=== PATIENT | female | born 1970 | race Caucasian/White ===

== ENCOUNTER 2016-09-16 11:57 | Emergency (ER) | payer OTHER ==
[2016-09-16 12:02] VITALS: O2SAT 97
--- NOTE | 2016-09-16 12:14 | CPEKG ---
Heart Rate: 71 RR Interval: 845 P-R Interval: 132 QRSD Interval: 78 QT Interval: 384 QTC Interval: 418 P [place]: 20 QRS [place]: 26 T Wave [place]: 13 EKG Severity - NORMAL ECG - EKG Impression: SINUS RHYTHM Electronically Signed By: Honorio Boyce 17-Sep-2016 09:12:01
[2016-09-16 12:40] LABS: % IMMATURE GRANULYOCYTES 0.1 % (0.0-1.1); ABSOLUTE IMMATURE GRANULOCYTES 0.01 10^3/uL (0.00-0.10); ADD DIFF? NO; ADD MORPH? NO; ADD SCAN? NO; ATYPICAL LYMPHOCYTE FLAG 10 (0-99); FRAGMENT RBC FLAG 0 (0-99); HEMATOCRIT 41.6 % (38.0-47.0); HEMOGLOBIN 14.4 g/dL (12.6-16.3); LEFT SHIFT FLG 0 (0-99); LIPEMIA HEMOLYSIS FLAG 90 (0-99); MEAN CELL HEMOGLOBIN 31.6 pg (27.9-34.1); MEAN CELL HEMOGLOBIN CONCENTR. 34.6 g/dL (32.4-36.7); MEAN CELL VOLUME 91.2 fL (81.5-99.8); MEAN PLATELET VOLUME 9.4 fL (8.7-11.7); PLATELET CLUMPS FLAG 10 (0-99); PLATELET COUNT 300 10^3/uL (150-400); RED BLOOD CELL COUNT 4.56 10^6/uL (4.18-5.33); RED CELL DISTRIBUTION WIDTH 12.6 % (11.5-15.2)
--- NOTE | 2016-09-16 12:41 | EDPHY ---
HPI/HX/ROS/PE/MDM Narrative: Chief complaint: Chest pressure, palpitations, nausea HPI: 46-year-old woman presenting complaining of a 2 days of this sensation in her heart is racing, tightness in her left chest, some lightheadedness. Does not have a history of the same. States that she is having intermittent episodes where she feels like her heart is pounding fast but is not actually measuring her heart rate. This is associated with some tightness in her left upper chest. Last time she had this was earlier this morning while she was heading out both ends at spiritism. Denies any shortness of breath. Does have a recent long car ride to [place] a over the holidays and back. No shortness of breath. No pain with deep inspiration. No cough. Has also noted some increased urination without any dysuria. Also has noted that she has had some decrease in her exercise tolerance and that every time she tried attempted a cardio workout she would get significant palpitations. She does have a history of a thyroid nodule which is being followed. She does not have any risk factors for coronary artery disease. She does have a family history of diabetes. Last menstrual. Was September 05 and was normal. ROS: 10 point Review of Systems is negative except as noted in the HPI. Physical exam: Gen: Awake, Alert, No Distress HEENT: Nose: no rhinorrhea Eyes: PERRLA, EOMI Mouth: Moist mucosa Neck: Supple, no JVD Chest: nontender, lungs clear to auscultation Heart: S1, S2 normal, no murmur Abd: Soft, non-tender, no guarding Back: no CVA tenderness, no midline tenderness Ext: no edema, non-tender Skin: no rash Neuro: CN II-XII intact, Sensation grossly intact, Strength 5/5 in bilateral upper and lower extremities ED Course: EC sinus rhythm, normal axis, normal intervals, no ST or T-wave changes. Impression: Normal ECG. Chest x-ray: Negative per Dr. Mclaughlin. Clinical Course: ECG is normal, all for laboratory evaluation including CBC, chemistry, D-dimer, tsh from 2 days ago, urinalysis and urine preg are all normal. There are no acute findings to explain her palpitations. She does some chest tightness several hours ago which has since resolved. She has a normal troponin at this time. She has not have risk factors for coronary artery disease. She has entirely normal studies today. Plan will be to discharge to home with follow with her primary care physician. Id [place] she were to have an event monitor in case she has episodes of palpitations again to capture these. She already has an appointment with a audioprosthologist in 3 weeks for further evaluation. - Data Points Laboratory Results: Laboratory Results 09/16/16 12:17 09/16/16 12:17 09/16/16 09/16/16 13:25 12:17 WBC 8.68 10^3/uL (3.80-9.50) RBC 4.56 10^6/uL (4.18-5.33) Hgb 14.4 g/dL (12.6-16.3) Hct 41.6 % (38.0-47.0) MCV 91.2 fL (81.5-99.8) MCH 31.6 pg (27.9-34.1) MCHC 34.6 g/dL (32.4-36.7) RDW 12.6 % (11.5-15.2) Plt Count 300 10^3/uL (150-400) MPV 9.4 fL (8.7-11.7) Neut % (Auto) 65.0 % (39.3-74.2) Lymph % (Auto) 23.4 % (15.0-45.0) [place] % (Auto) 5.0 % (4.5-13.0) Eos % (Auto) 6.0 % (0.6-7.6) Baso % (Auto) 0.5 % (0.3-1.7) Nucleat RBC Rel Count 0.0 % (0.0-0.2) Absolute Neuts (auto) 5.65 10^3/uL (1.70-6.50) Absolute Lymphs (auto) 2.03 10^3/uL (1.00-3.00) Absolute Monos (auto) 0.43 10^3/uL (0.30-0.80) Absolute Eos (auto) 0.52 H 10^3/uL (0.03-0.40) Absolute Basos (auto) 0.04 10^3/uL (0.02-0.10) Absolute Nucleated RBC 0.00 10^3/uL (0-0.01) Immature Gran % 0.1 % (0.0-1.1) Immature Gran # 0.01 10^3/uL (0.00-0.10) D-Dimer 0.37 ug/mLFEU (0.00-0.50) Sodium 141 mEq/L (134-144) Potassium 4.2 mEq/L (3.5-5.2) Chloride 104 mEq/L (97-110) Carbon Dioxide 24 mEq/l (22-31) Anion Gap 13 mEq/L (8-16) BUN 12 mg/dL (7-23) Creatinine 0.7 mg/dL (0.6-1.0) Estimated GFR > 60 Glucose 97 mg/dL (70-100) Calcium 9.8 mg/dL (8.5-10.4) Troponin I < 0.012 ng/mL (0-0.034) TSH Cancelled Free T4 Cancelled Urine Color PALE YELLOW Urine Appearance CLEAR Urine pH 6.0 (5.0-7.5) Ur Specific [place] 1.006 (1.002-1.030) Urine Protein NEGATIVE (NEGATIVE) Urine Ketones NEGATIVE (NEGATIVE) Urine Blood NEGATIVE (NEGATIVE) Urine Nitrate NEGATIVE (NEGATIVE) Urine Bilirubin NEGATIVE (NEGATIVE) Urine Urobilinogen NEGATIVE EU (0.2-1.0) Ur Leukocyte Esterase NEGATIVE (NEGATIVE) Urine Glucose NEGATIVE (NEGATIVE) Urine Test NEGATIVE General Time Seen by Provider: 09/16/16 12:25 Initial Vital Signs: Initial Vital Signs Heart Rate 76 09/16/16 11:59 Respiratory Rate 18 09/16/16 11:59 Blood Pressure 135/97 H 09/16/16 11:59 O2 Sat (%) 97 09/16/16 11:59 O2 Delivery Mode Room Air Allergies/Adverse Reactions: No Known Allergies Allergy (Unverified 09/16/16 12:02) Home Medications: Medication Instructions Recorded NK [No Known Home Meds] 09/16/16 Departure - Departure Disposition: Home, Routine, Self-Care Clinical Impression: Palpitations Condition: Good Instructions: Palpitations (ED) Additional Instructions: Follow up with her primary care doctor in the next couple of days to arrange for an outpatient monitor technician. Follow up with Cardiology as scheduled in 3 weeks time. Return to the emergency depart for increasing chest pain, palpitations, fevers, chills, fainting, or any other concerns. Referrals: Merlyn Lopez MD [Primary Care Provider] - As per Instructions
--- NOTE | 2016-09-16 12:44 | DX ---
PA and Lateral Chest X-ray 1155 hours History: Chest pain and pressure.. Findings: Heart size and pulmonary vasculature are normal. The lungs are clear without infiltrates or effusions. There is no pneumothorax. The osseous structures are intact. Mild anterior marginal osteo phytes are noted mid thoracic spine. Impression: No active cardiopulmonary disease seen.
[2016-09-16 13:02] LABS: ANION GAP 13 mEq/L (8-16); CALCIUM 9.8 mg/dL (8.5-10.4); CARBON DIOXIDE 24 mEq/l (22-31); CHLORIDE 104 mEq/L (97-110); CREATININE 0.7 mg/dL (0.6-1.0); GLOMERULAR FILTRATION RATE > 60; GLUCOSE 97 mg/dL (70-100); POTASSIUM 4.2 mEq/L (3.5-5.2); SODIUM 141 mEq/L (134-144)
[2016-09-16 13:10] LABS: TROPONIN I < 0.012 ng/mL (0-0.034)
[2016-09-16 14:15] LABS: COLOR PALE YELLOW; LEUKOCYTE ESTERASE,URINE NEGATIVE (NEGATIVE); NITRITE,URINE NEGATIVE (NEGATIVE)
[2016-09-16 14:51] VITALS: BP 137/84; PULSE 73; RESP 12; TEMP 98.4
== END 2016-09-16 14:56 | disposition home or self-care (01) ==
DX: R00.2 Palpitations (principal)

== ENCOUNTER → 2016-09-24 | Outpatient (CLI) | payer OTHER ==
--- NOTE | 2016-09-24 12:04 | US ---
Thyroid Ultrasound History: Follow up right-sided thyroid nodule with previous benign biopsy. Comparison: Thyroid ultrasound of August 17, 2015 and July 08, 2014. Technique: Longitudinal and transverse ultrasound imaging of the thyroid gland. Findings: The right lobe of the thyroid measures 2.4 x 1.8 x 5.4 cm. The solid nodule in the mid rig ht thyroid measures 2.3 x 1.5 x 2.6 cm, previously 2.3 x 1.5 x 2.2 cm. The left lobe of the thyroid measures 1.8 x 1.3 x 4.6 cm. The left lobe of the thyroid is homogeneo us with no nodules identified. The isthmus is normal. Impression: Minimal increase in size of the previously biopsied right thyroid nodule, of questionable clinical significance.
== END ==
LOC: BMCIMAGING 10:41
PROVIDERS: ATTEND Internal Medicine Endocrinology, Diabetes & Metabolism
DX: E04.2 Nontoxic multinodular goiter (principal)
CPT/HCPCS: 76536-PO

== ENCOUNTER → 2018-12-26 | Outpatient (CLI) | payer OTHER | LOC: BMCIMAGING 12:42 | PROVIDERS: ATTEND Internal Medicine Endocrinology, Diabetes & Metabolism | DX: E04.2 Nontoxic multinodular goiter (principal) | CPT/HCPCS: 76536-PO ==